=== PATIENT | female | born 1995 | race Caucasian/White ===

== ENCOUNTER 2017-10-31 13:34 | Emergency (ER) | payer BC ==
--- NOTE | 2017-10-31 18:42 | EDM.PDOC ---
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 presents to ER with complaints of mild vaginal spotting. She states that she had intercourse approx 14 days ago. She is in a same sex relationship and is trying to conceive. Pt. denies any vaginal pain or trauma. She states that the spotting was very light. She states that the last day of her LMP was 10/16/17. Pt. is requesting a test. Onset: Today - Related Data Allergies Allergy/AdvReac Type Severity Reaction Status Date / Time No Known Allergies Allergy Verified 10/31/17 13:48 Home Meds: Home Meds Citalopram [Citalopram HBr] 20 mg PO DAILY 10/31/17 [History] Past Medical History Psychiatric History: Reports: Anxiety, Depression Social & Family History - Tobacco Use Smoking Status *Q: Current Every Day Smoker Years of Tobacco use: 2 Packs/Tins Daily: 0.5 ED ROS GENERAL - Review of Systems Review Of Systems: See Below Respiratory: Reports: No Symptoms Cardiovascular: Reports: No Symptoms Endocrine: Reports: No Symptoms GI/Abdominal: Reports: No Symptoms : Reports: Other (vag bleeding) Musculoskeletal: Reports: No Symptoms Skin: Reports: No Symptoms ED EXAM, GENERAL - Physical Exam Exam: See Below Exam Limited By: No Limitations General Appearance: Alert, WD/WN, No Apparent Distress GI/Abdominal: Normal Bowel Sounds, Soft, Non-Tender, No Organomegaly, No Distention, No Abnormal Bruit, No Mass, Pelvis Stable Course - Vital Signs Last Recorded V/S: Last Vital Signs Temp 37.1 C 10/31/17 13:40 Pulse 71 10/31/17 13:40 Resp 12 10/31/17 13:40 BP 167/92 H 10/31/17 13:40 Pulse Ox 97 10/31/17 13:40 - Orders/Labs/Meds Orders: Active Orders 24 hr Category Date Time Status HCG URINE, POC [POC] Stat Lab 10/31/17 13:56 Ordered Labs: Laboratory Tests 10/31/17 Range/Units 13:56 POC Urine HCG, Qual Negative Departure - Departure Time of Disposition: 14:45 Disposition: Home, Self-Care 01 Condition: Good Clinical Impression: Dysfunctional uterine bleeding - Discharge Information Instructions: Dysfunctional Uterine Bleeding Referrals: Kenna Abbott NP [Primary Care Provider] - Forms: ED Department Discharge Additional Instructions: Follow-up with primary care if continuing to spot. Repeat test in 1 week at home. - My Orders Last 24 Hours: My Active Orders 10/31/17 13:56 HCG URINE, POC [POC] Stat - Assessment/Plan Last 24 Hours: My Active Orders 10/31/17 13:56 HCG URINE, POC [POC] Stat
== END 2017-10-31 14:45 | disposition home or self-care (01) ==
LOC: VM.ED 13:34
DX: N93.8 Other specified abnormal uterine and vaginal bleeding (principal); F17.210 Nicotine dependence, cigarettes, uncomplicated; Z79.899 Other long term (current) drug therapy
CPT/HCPCS: 81025; 99284